=== PATIENT | male | born 1980 | race Caucasian/White ===

== ENCOUNTER → 2021-12-18 07:47 | Outpatient (CLI) | payer OTHER, SELFPAY ==
--- NOTE | 2021-12-18 | DI.MRI.S_ITS ---
PROCEDURE: MR HEAD/BRAIN WO CON INDICATIONS: Headache, unspecified TECHNIQUE: Noncontrast axial T1 spin echo, axial T2 fast spin echo, sagittal and axial FLAIR, coronal T2 fast spin echo, axial gradient echo, axial diffusion and ADC through the brain. COMPARISON: None. FINDINGS: Image quality: Excellent. CSF Spaces: Basal cisterns are patent. No extra-axial fluid collections. Ventricles are normal in size and shape. Brain: No intracranial masses or hemorrhage. Tineo/white matter interface is normal. Brainstem appears normal. Diffusion-weighted images demonstrate no acute ischemic insult. No chronic ischemic insults. Normal intravascular flow voids are present. Skull and face: Calvarium has normal marrow signal. Orbits appear normal. Sinuses: Sinuses and mastoids are clear. IMPRESSION: Normal MRI of the brain. Dictated by: Neil Ahmadi M.D. on 12/18/2021 at 9:21 Approved by: Neil Ahmadi M.D. on 12/18/2021 at 9:22
== END ==
PROVIDERS: Referring Provider Physician Assistant; Visit Provider Physician Assistant
DX: G43.909 Migraine, unspecified, not intractable, without status migrainosus (principal)
CPT/HCPCS: 70551

== ENCOUNTER → 2024-06-21 12:20 | Outpatient (CLI) | payer OTHER, SELFPAY ==
--- NOTE | 2024-06-21 12:22 | DI.MRI.S_ITS ---
PROCEDURE: MR LUMBAR SPINE WO CON INDICATIONS: Spinal stenosis, lumbar region with neurogenic cla TECHNIQUE: Noncontrast sagittal T1 spin echo and T2 fast echo, sagittal STIR, and T2 fast spin echo through the lumbar spine. In cases with scoliosis, additional coronal T2 fast spin echo may be performed. COMPARISON: [facility] Outside Film, MR, MR LUMBAR SPINE WITHOUT CONTRAST, 02/18/2023, 8:49. FINDINGS: Image quality: Excellent Mild straightening of the lumbar spine. Grade 1 anterolisthesis of L5 on S1. Vertebral body height of the lumbar spine are well maintained. Fibrofatty endplate change at L4-5. Multilevel disc bulge and disc desiccation. Conus terminates at the level of L1, and is unremarkable. Right neural foraminal stenosis: Mild at L4-5. Mild at L5-S1. Left neural foraminal stenosis: Mild at L4-5. Axial images: T12-L1 no central canal stenosis. L1-2: No central canal stenosis. L2-3: No central canal stenosis. L3-4: Mild bilateral facet arthropathy. No central canal stenosis. L4-5: Diffuse disc bulge. Mild bilateral facet arthropathy. No central canal stenosis. L5-S1: Left paracentral disc extrusion, with a 1.5 centimeter disc fragment, posterior and slightly superior to the disc extrusion, resulting in marked mass effect on the left descending nerve root, and complete effacement of the left lateral recess. Moderate central canal stenosis. Mild bilateral facet arthropathy. Visualized sacrum is intact. No abdominal aortic aneurysm. IMPRESSION: 1. Multilevel degenerative changes of the lumbar spine, most pronounced at L5-S1, where there is left paracentral disc extrusion with a large disc fragment, resulting in marked mass effect on the left descending nerve roots, complete effacement of the left lateral recess and moderate central canal stenosis, new from prior exam. 2. Multilevel mild neural foraminal stenosis as described above. Dictated by: Tiffanie Will M.D. on 06/21/2024 at 17:25 Approved by: Tiffanie Will M.D. on 06/21/2024 at 17:35
== END ==
PROVIDERS: Referring Provider Physical Medicine & Rehabilitation Pain Medicine; Visit Provider Physical Medicine & Rehabilitation Pain Medicine
DX: M48.062 Spinal stenosis, lumbar region with neurogenic claudication (principal); M48.07 Spinal stenosis, lumbosacral region; M47.816 Spondylosis without myelopathy or radiculopathy, lumbar region; M47.817 Spondylosis without myelopathy or radiculopathy, lumbosacral region; M51.27 Other intervertebral disc displacement, lumbosacral region
CPT/HCPCS: 72148